=== PATIENT | male | born 1990 | race American Indian/Alaskan Native ===

== ENCOUNTER 2017-01-20 12:15 | Emergency (ER) | payer MEDICAID ==
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
[2017-01-21] MEDS: BOOSTRIX IM ONE (01:04)
[2017-01-21] MEDS: TYLENOL #3 PO ONE (01:05)
[2017-01-21] MEDS: MOTRIN PO ONE (01:05)
[2017-01-21 01:16] VITALS: BP 120/85
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
== END 2017-01-21 01:15 | disposition home or self-care (01) ==
LOC: ED 12:15
DX: S60.512A Abrasion of left hand, initial encounter (principal); S60.511A Abrasion of right hand, initial encounter; R51 Headache; R53.81 Other malaise; Y09 Assault by unspecified means; Y93.9 Activity, unspecified; Y99.9 Unspecified external cause status; Y92.009 Unspecified place in unspecified non-institutional (private) residence as the place of occurrence of the external cause
CPT/HCPCS: 70355; 71020; 74020; 90471; 90715

== ENCOUNTER 2017-05-08 15:38 | Emergency (ER) | payer MEDICAID ==
[2017-05-08] MEDS ORDERED: NACL 0.9% 1000 ML 0 ML ONE (16:41)
[2017-05-08] MEDS ORDERED: ATIVAN ONE (16:41)
[2017-05-08] MEDS ORDERED: KEPPRA 1,000 MG/NS 0.75% 100ML 1,000 MG/100 ML BAG IV ONE (16:52)
[2017-05-08] MEDS ORDERED: LaMICtal PO ONE (16:53)
[2017-05-08 17:23] LABS: Hematocrit 46.9 % (35.5-45.6); Hemoglobin 15.4 gm/dl (11.8-15.2); Mean Corpuscular HGB Conc 33 % (32-34); Mean Corpuscular Hemoglobin 31 pg (28-32); Mean Corpuscular Volume 95 fl (84-94); Platelet Count 291 K/mm3 (140-440); Red Blood Count 4.96 M/mm3 (3.65-5.03); Red Cell Distribution Width 13.3 % (13.2-15.2)
--- NOTE | 2017-05-08 17:27 | Cat Scan Report ---
FINAL REPORT EXAM: CT HEAD/BRAIN WO CON HISTORY: seizures TECHNIQUE: Standard unenhanced CT of the head at 5.0 millimeter axial increments PRIORS: None. FINDINGS: The ventricular system is normal in size and configuration. There is no evidence for parenchymal volume loss. There is no evidence for mass lesion, mass effect, midline shift, acute intracranial hemorrhage, or acute ischemia/ infarction. Visualized paranasal sinuses demonstrates mild mucosal thickening of several bilateral ethmoid air cells.. IMPRESSION: Chronic ethmoid sinusitis. No acute intracranial process noted.
[2017-05-08 17:39] LABS: BUN/Creatinine Ratio 15; Blood Urea Nitrogen 12 mg/dL (9-20); Calcium 9.3 mg/dL (8.4-10.2); Hemolysis Index 7
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
[2017-05-08 19:50] VITALS: BP 115/67
== END 2017-05-08 19:53 | disposition home or self-care (01) ==
LOC: ED 15:38
DX: R56.9 Unspecified convulsions (principal)
CPT/HCPCS: 36415; 70450; 80048; 85027; 96360; 99285; J1953; J2060; J7030

== ENCOUNTER 2017-06-08 13:10 | Emergency (ER) | payer MEDICAID ==
[2017-06-08 13:22] VITALS: BP 124/79
== END 2017-06-08 16:51 | disposition left against medical advice (07) ==
LOC: ED 13:10
DX: R56.9 Unspecified convulsions (principal); Z53.21 Procedure and treatment not carried out due to patient leaving prior to being seen by health care provider

== ENCOUNTER 2019-02-28 16:30 | Emergency (ER) | payer MEDICAID ==
[2019-02-28 16:41] VITALS: BP 114/66
--- NOTE | 2019-02-28 17:41 | Emergency Department Report ---
ED Recheck HPI - General Chief Complaint: Recheck/Abnormal Lab/Rx Stated Complaint: MED REFILL/SEIZURE Time Seen by Provider: 02/28/19 17:36 Source: patient Mode of arrival: Ambulatory Limitations: No Limitations - History of Present Illness Initial Comments: pt is a 28 yo male who presents to the ED with c/o medication refill. he states that he takes lamictal and keppra for seizure disorder. states he took his medication this morning. states he has an appointment with a neurologist on March 11. states his neurologist is out of town and he only has approximately 3 tablets left. he denies any symptoms at all. - Related Data Previous Rx's Medication Instructions Recorded Last Taken Type Acetaminophen [Tylenol Arthritis] 650 mg PO Q6HR PRN #30 tablet.er 01/21/17 Unknown Rx Bacitracin Zinc Oint [Antibiotic 1 applicatio TP BID #1 tube 01/21/17 Unknown Rx Oint] Chlorhexidine Mouthwash [Peridex] 15 ml MM BID #1 bottle 01/21/17 Unknown Rx Ibuprofen [Motrin] 600 mg PO Q8H PRN #30 tablet 01/21/17 Unknown Rx oxyCODONE [Roxicodone] 5 mg PO Q6HR PRN #15 tablet 01/21/17 Unknown Rx levETIRAcetam [Keppra] 500 mg PO BID #60 tablet 05/08/17 Unknown Rx lamoTRIgine [LaMICtal] 200 mg PO BID #60 tab 02/28/19 Unknown Rx levETIRAcetam [Keppra TAB] 500 mg PO BID #60 tablet 02/28/19 Unknown Rx Allergies Allergy/AdvReac Type Severity Reaction Status Date / Time No Known Allergies Allergy Verified 02/28/19 16:38 ED Review of Systems ROS: Stated complaint: MED REFILL/SEIZURE Other details as noted in HPI Comment: All other systems reviewed and negative ED Past Medical Hx - Past Medical History Hx Seizures: Yes - Social History Smoking Status: Never Smoker Substance Use Type: None - Medications Home Medications: Home Medications Medication Instructions Recorded Confirmed Last Taken Type Acetaminophen [Tylenol Arthritis] 650 mg PO Q6HR PRN #30 tablet.er 01/21/17 05/08/17 Unknown Rx Bacitracin Zinc Oint [Antibiotic 1 applicatio TP BID #1 tube 01/21/17 05/08/17 Unknown Rx Oint] Chlorhexidine Mouthwash [Peridex] 15 ml MM BID #1 bottle 01/21/17 05/08/17 Unknown Rx Ibuprofen [Motrin] 600 mg PO Q8H PRN #30 tablet 01/21/17 05/08/17 Unknown Rx oxyCODONE [Roxicodone] 5 mg PO Q6HR PRN #15 tablet 01/21/17 05/08/17 Unknown Rx levETIRAcetam [Keppra] 500 mg PO BID #60 tablet 05/08/17 Unknown Rx lamoTRIgine [LaMICtal] 200 mg PO BID #60 tab 02/28/19 Unknown Rx levETIRAcetam [Keppra TAB] 500 mg PO BID #60 tablet 02/28/19 Unknown Rx ED Physical Exam - General Limitations: No Limitations General appearance: alert, in no apparent distress - Head Head exam: Present: atraumatic, normocephalic - Eye Eye exam: Present: normal appearance - ENT ENT exam: Present: mucous membranes moist - Neurological Exam Neurological exam: Present: alert, oriented X3 - Psychiatric Psychiatric exam: Present: normal affect, normal mood - Skin Skin exam: Present: warm, dry, intact ED Course Vital Signs 02/28/19 16:40 Temperature 98.2 F Pulse Rate 88 Respiratory 18 Rate Blood Pressure 114/66 O2 Sat by Pulse 96 Oximetry ED Recheck MDM - Medical Decision Making pt is a 28 yo male who presents to the ED with c/o medication refill. he states that he takes lamictal and keppra for seizure disorder. states he took his medication this morning. states he has an appointment with a neurologist on March 11. states his neurologist is out of town and he only has approximately 3 tablets left. he denies any symptoms at all. VSS. pt given refill of his medications. advised pt please take medication as prescribed. increase your water intake. follow up with your neurologist. return to the emergency room for any new or worsening symptoms. Critical care attestation.: If time is entered above; I have spent that time in minutes in the direct care of this critically ill patient, excluding procedure time. ED Disposition Clinical Impression: Medication refill Disposition: - TO HOME OR SELFCARE Is pt being admited?: No Does the pt Need Aspirin: No Condition: Stable Instructions: Recurrent Seizures Adult (ED) Additional Instructions: please take medication as prescribed. increase your water intake. follow up with your neurologist. return to the emergency room for any new or worsening symptoms. Prescriptions: levETIRAcetam [Keppra TAB] 500 mg PO BID #60 tablet lamoTRIgine [LaMICtal] 200 mg PO BID #60 tab Referrals: your, neurologist [Other] - 3-5 Days Time of Disposition: 17:39 Print Language: CITIZ[place]
== END 2019-02-28 18:50 | disposition home or self-care (01) ==
LOC: ED 16:30
DX: G40.909 Epilepsy, unspecified, not intractable, without status epilepticus (principal); Z79.899 Other long term (current) drug therapy; Z76.0 Encounter for issue of repeat prescription